=== PATIENT | male | born 1965 | race African-American/Black ===

== ENCOUNTER 2019-06-19 11:01 | Inpatient (IN) | payer OTHER ==
[2019-06-19 12:03] VITALS: BMI 34.0
--- NOTE | 2019-06-19 14:22 | HP ---
CIWA Score Nausea/Vomitin Muscle Tremors: 3 Anxiety: 2 Agitation: 2 Paroxysmal Sweats: 2 Orientation: 0-Oriented Tacttile Disturbances: 1-Very Mild Itch/Numbness Auditory Disturbances: 0-None Visual Disturbances: 1-Very Mild Sensitivity Headache: 2-Mild CIWA-Ar Total Score: 15 - Admission Criteria OASAS Guidelines: Admission for Medically Managed Detox: Requires at least one of the followin. CIWA greater than 12 2. Seizures within the past 24 hours 3. Delirium tremens within the past 24 hours 4. Hallucinations within the past 24 hours 5. Acute intervention needed for co occurring medical disorder 6. Acute intervention needed for co occurring psychiatric disorder 7. Severe withdrawal that cannot be handled at a lower level of care (continued vomiting, continued diarrhea, abnormal vital signs) requiring intravenous medication and/or fluids 8. Patient presents the following: CIWA greater than 12 Admission Criteria Met: Admission criteria met Admission ROS [facility] Chief Complaint: I need detox Allergies/Adverse Reactions: Allergies Allergy/AdvReac Type Severity Reaction Status Date / Time tomato Allergy Severe Swelling Verified 06/19/19 11:56 History of Present Illness: 54 year old man with alcohol and occasional heroin use presents for detox, this his first time at [facility]. He reports several treatments at other locations.He denies seizures related to alcohol but has had some blackouts in the past. Exam Limitations: No Limitations - Ebola screening Have you traveled outside of the country in the last 21 days: No Have you had contact with anyone from an Ebola affected area: No Have you been sick,other than usual withdrawal symptoms: No Do you have a fever: No - Review of Systems Constitutional: Chills, Loss of Appetite, Changes in sleep EENT: reports: Blurred Vision (r/t glaucoma) Respiratory: reports: Productive cough Cardiac: reports: No Symptoms Reported GI: reports: Nausea, Poor Appetite, Vomiting, Abdominal cramping : reports: No Symptoms Reported Musculoskeletal: reports: Back Pain, Joint Pain, Muscle Pain Integumentary: reports: Sweating Neuro: reports: Headache, Numbness Endocrine: reports: No Symptoms Reported Hematology: reports: No Symptoms Reported Psychiatric: reports: Anxious, Depressed Other Systems: Reviewed and Negative Patient History - Patient Medical History Hx Anemia: No Hx Asthma: Yes Hx Chronic Obstructive Pulmonary Disease (COPD): Yes Hx Cancer: No Hx Cardiac Disorders: No Hx Congestive Heart Failure: No Hx Hypertension: No Hx Hypercholesterolemia: No Hx Pacemaker: No HX Cerebrovascular Accident: No Hx Seizures: No Hx Dementia: No Hx Diabetes: No Hx Gastrointestinal Disorders: No Hx Liver Disease: No Hx Genitourinary Disorders: No Hx Sexually Transmitted Disorders: No Hx Renal Disease (ESRD): No Hx Thyroid Disease: No Hx Human Immunodeficiency Virus (HIV): No Hx Hepatitis C: No Hx Depression: Yes Hx Suicide Attempt: No Hx Bipolar Disorder: No Hx Schizophrenia: No - Patient Surgical History Past Surgical History: No - PPD History Previous Implant?: No Documented Results: Positive w/o proof Implanted On Prior [facility] Admission?: No Results: positive PPD PPD to be Administered?: No - Smoking Cessation Smoking history: Current every day smoker Have you smoked in the past 12 months: Yes Aproximately how many cigarettes per day: 10 Hx Chewing Tobacco Use: No Initiated information on smoking cessation: Yes 'Breaking Loose' booklet given: 06/19/19 - Substances abused Alcohol Substance route: Oral Frequency: Daily Amount used: 2-3 qts of beer/day Age of first use: 15 Date of last use: 06/17/19 Heroin Substance route: Inhalation Frequency: 3-6 times per week Amount used: 2-3 bags Age of first use: 53 Date of last use: 06/16/19 Admission Physical Exam [facility] - Vital Signs Vital Signs: Vital Signs - 24 hr 06/19/19 12:00 Temperature 97.6 F Pulse Rate 73 Respiratory 18 Rate Blood Pressure 120/77 - Physical General Appearance: Yes: Other (constantly sleeping) HEENTM: Yes: Hearing grossly Normal, Normal Voice, Pharynx Normal Respiratory: Yes: Chest Non-Tender, Lungs Clear, No Respiratory Distress, No Accessory Muscle Use Neck: Yes: No masses,lesions,Nodules, Supple Breast: Yes: Breast Exam Deferred Cardiology: Yes: Regular Rhythm, Regular Rate Abdominal: Yes: Normal Bowel Sounds, Soft Genitourinary: Yes: Within Normal Limits Musculoskeletal: Yes: full range of Motion Extremities: Yes: Tremors, Coldness Neurological: Yes: Alert, Normal Mood/Affect, Normal Response Integumentary: Yes: [place] Lymphatic: Yes: Within Normal Limits - Diagnostic (1) Alcohol dependence, uncomplicated Current Visit: Yes Status: Acute (2) Cocaine abuse Current Visit: Yes Status: Acute (3) Nicotine dependence Current Visit: Yes Status: Acute Qualifiers: Nicotine product type: cigarettes Substance use status: uncomplicated Qualified Code(s): F17.210 - Nicotine dependence, cigarettes, uncomplicated (4) Marijuana abuse Current Visit: Yes Status: Acute Cleared for Admission S - Detox or Rehab [facility] Level of Care: Medically Managed Detox Regimen/Protocol: Librium Claeared for Rehab Admission: No Breathalyzer - Breathalyzer Breathalyzer: 0 Urine Drug Screen - Test Device Lot number: [id number] Expiration date: 04/09/21 - Control Is test valid?: Yes - Results Drug screen NEGATIVE: No Urine drug screen results: THC-Marijuana, JUSTIN-Cocaine Inpatient Rehab Admission - Rehab Decision to Admit Inpatient rehab admission?: No
[2019-06-19] MEDS ORDERED: METHOCARBAMOL 500 MG TABLET PO PRN (14:29)
[2019-06-19] MEDS ORDERED: BISMUTH SUBSALICYLATE 524 MG/30 ML UD PO PRN (14:29)
[2019-06-19] MEDS ORDERED: MELATONIN 5 MG TABLETS PO PRN (14:29)
[2019-06-19] MEDS ORDERED: MAGNESIUM CITRATE 300 ML BOTTLE PO PRN (14:29)
[2019-06-19] MEDS ORDERED: chlordiazePOXIDE HCL 10 MG CAPSULE PO PRN (14:29)
[2019-06-19] MEDS ORDERED: ACETAMINOPHEN 325 MG TABLET (FP) PO PRN ×2 (14:29)
[2019-06-19] MEDS ORDERED: MENTHOL/PHENOL 1 EACH UD MM PRN (14:29)
[2019-06-19] MEDS ORDERED: NICOTINE POLACRILEX 2 MG GUM BUC PRN (14:29)
[2019-06-19] MEDS ORDERED: MAG HYDROX/AL HYDROX/SIMETH 30 ML UNIT-DOSE CUP PO PRN (14:29)
[2019-06-19] MEDS ORDERED: MAGNESIUM HYDROX 2400MG/30ML ORAL SUSPENSION 30 ML CUP PO PRN (14:29)
[2019-06-19] MEDS ORDERED: hydrOXYzine PAMOATE 25 MG CAPSULE (FP) PO PRN (14:29)
[2019-06-19] MEDS: NICOTINE 14 MG/24 HOURS TOPICAL PATCH TD SCH (15:28)
[2019-06-19] MEDS: chlordiazePOXIDE HCL 25 MG CAPSULE PO SCH (23:40)
[2019-06-19] MEDS: THIAMINE HCL 100 MG TABLET (FP) PO SCH (23:40)
[2019-06-20] MEDS: chlordiazePOXIDE HCL 25 MG CAPSULE PO SCH ×3 (07:00→22:50)
--- NOTE | 2019-06-20 10:02 | PN ---
S CIWA - CIWA Score Nausea/Vomitin-Mild Nausea/No Vomiting Muscle Tremors: 2 Anxiety: 2 Agitation: 2 Paroxysmal Sweats: No Perspiration Orientation: 0-Oriented Tacttile Disturbances: 1-Very Mild Itch/Numbness Auditory Disturbances: 0-None Visual Disturbances: 0-None Headache: 2-Mild CIWA-Ar Total Score: 10 [facility] Progress Note (SOAP) Subjective: alert,irritable,anxious,interrupted sleep,tremor,coughing with yellowish mucous Objective: 06/20/19 10:00 Vital Signs Temperature 97.9 F 06/20/19 09:25 Pulse Rate 69 06/20/19 09:25 Respiratory Rate 18 06/20/19 09:25 Blood Pressure 141/86 06/20/19 09:25 O2 Sat by Pulse Oximetry (%) labs pending Assessment: 06/20/19 10:01 withdrawal symptom Plan: continue detox librium regimen,zithromax for bronchitis,chest xray to day
[2019-06-20 10:08] LABS: ALBUMIN 2.9 g/dl (3.4-5.0); BILIRUBIN,TOTAL 0.3 mg/dL (0.2-1); BLOOD UREA NITROGEN 9.5 mg/dL (7-18); CALCIUM 8.6 mg/dL (8.5-10.1); TOT PROT 5.8 g/dl (6.4-8.2)
[2019-06-20 10:20] LABS: HEMATOCRIT 42.4 % (35.4-49); HEMOGLOBIN 13.8 GM/dL (11.7-16.9); MCHC 32.5 g/dl (32.0-35.9); MEAN CELL VOLUME 89.1 fl (80-96); MEAN PLT VOLUME 10.3 fl (7.5-11.1); PLATELET COUNT 174 K/MM3 (134-434); RBC 4.76 M/mm3 (4.00-5.60); WHITE BLOOD COUNT 8.2 K/mm3 (4.0-10.0)
[2019-06-20] MEDS ORDERED: AZITHROMYCIN 250 MG TABLET PO ONE (11:10)
[2019-06-20] MEDS: NICOTINE 14 MG/24 HOURS TOPICAL PATCH TD SCH (11:16)
[2019-06-20] MEDS: PRENATAL VITAMINS W/ FOLIC ACID TABLET (FP) PO SCH (11:16)
[2019-06-20] MEDS: IBUPROFEN 400 MG TABLET (FP) PO PRN (14:52)
[2019-06-20] MEDS: guaiFENesin 200 MG/10 ML 10 ML UNIT-DOSE CUPS PO PRN (21:08)
[2019-06-20] MEDS: THIAMINE HCL 100 MG TABLET (FP) PO SCH (23:21)
[2019-06-21] MEDS: chlordiazePOXIDE 5 MG CAPSULE PO SCH ×3 (05:53→22:55)
--- NOTE | 2019-06-21 09:53 | PN ---
S CIWA - CIWA Score Nausea/Vomitin-Mild Nausea/No Vomiting Muscle Tremors: 2 Anxiety: 2 Agitation: 2 Paroxysmal Sweats: No Perspiration Orientation: 0-Oriented Tacttile Disturbances: 1-Very Mild Itch/Numbness Auditory Disturbances: 0-None Visual Disturbances: 0-None Headache: 1-Very Mild CIWA-Ar Total Score: 9 BHS Progress Note (SOAP) Subjective: alert,irritable,anxious,interrupted sleep,tremor,low back pain,history of neuropathy stated on neurontin before Objective: 06/21/19 09:51 Vital Signs Temperature 98.4 F 06/21/19 09:27 Pulse Rate 70 06/21/19 09:27 Respiratory Rate 19 06/21/19 09:27 Blood Pressure 129/64 06/21/19 09:27 O2 Sat by Pulse Oximetry (%) Laboratory Last Values WBC 8.2 K/mm3 (4.0-10.0) 06/20/19 08:00 RBC 4.76 M/mm3 (4.00-5.60) 06/20/19 08:00 Hgb 13.8 GM/dL (11.7-16.9) 06/20/19 08:00 Hct 42.4 % (35.4-49) 06/20/19 08:00 MCV 89.1 fl (80-96) 06/20/19 08:00 MCH 29.0 pg (25.7-33.7) 06/20/19 08:00 MCHC 32.5 g/dl (32.0-35.9) 06/20/19 08:00 RDW 14.0 % (11.9-15.9) 06/20/19 08:00 Plt Count 174 K/MM3 (134-434) 06/20/19 08:00 MPV 10.3 fl (7.5-11.1) 06/20/19 08:00 Sodium 138 mmol/L (136-145) 06/20/19 08:00 Potassium 4.0 mmol/L (3.5-5.1) 06/20/19 08:00 Chloride 105 mmol/L (98-107) 06/20/19 08:00 Carbon Dioxide 27 mmol/L (21-32) 06/20/19 08:00 Anion Gap 6 MMOL/L (8-16) L 06/20/19 08:00 BUN 9.5 mg/dL (7-18) 06/20/19 08:00 Creatinine 1.0 mg/dL (0.55-1.3) 06/20/19 08:00 Est GFR (CKD-EPI)AfAm 99.85 06/20/19 08:00 Est GFR (CKD-EPI)NonAf 86.15 06/20/19 08:00 Random Glucose 228 mg/dL (74-106) H 06/20/19 08:00 Calcium 8.6 mg/dL (8.5-10.1) 06/20/19 08:00 Total Bilirubin 0.3 mg/dL (0.2-1) 06/20/19 08:00 AST 17 U/L (15-37) 06/20/19 08:00 ALT 34 U/L (13-61) 06/20/19 08:00 Alkaline Phosphatase 101 U/L (45-117) 06/20/19 08:00 Total Protein 5.8 g/dl (6.4-8.2) L 06/20/19 08:00 Albumin 2.9 g/dl (3.4-5.0) L 06/20/19 08:00 RPR Titer Nonreactive (NONREACTIVE) 06/20/19 08:00 Assessment: 06/21/19 09:52 withdrawal symptom 06/21/19 09:55 patient refused chest x ray yesterday Plan: continue detox librium regimen,fasting blood glucose in am,bgm bid,neurontitin 300 mgs po tid for neuropathy
[2019-06-21] MEDS: NICOTINE 14 MG/24 HOURS TOPICAL PATCH TD SCH (10:26)
[2019-06-21] MEDS: PRENATAL VITAMINS W/ FOLIC ACID TABLET (FP) PO SCH (10:27)
[2019-06-21] MEDS: AZITHROMYCIN 250 MG TABLET PO SCH (10:27)
[2019-06-21] MEDS: guaiFENesin 200 MG/10 ML 10 ML UNIT-DOSE CUPS PO PRN (10:28)
[2019-06-21] MEDS: IBUPROFEN 400 MG TABLET (FP) PO PRN ×2 (10:28→20:38)
[2019-06-21] MEDS: GABAPENTIN 300 MG CAPSULE PO SCH ×2 (13:25→22:56)
[2019-06-21] MEDS: THIAMINE HCL 100 MG TABLET (FP) PO SCH (22:56)
[2019-06-22] MEDS ORDERED: chlordiazePOXIDE HCL 10 MG CAPSULE PO PRN
[2019-06-22] MEDS: GABAPENTIN 300 MG CAPSULE PO SCH ×2 (07:13→13:57)
[2019-06-22] MEDS: chlordiazePOXIDE HCL 10 MG CAPSULE PO SCH ×2 (07:14→13:57)
--- NOTE | 2019-06-22 09:05 | PN ---
[facility] CIWA - CIWA Score Nausea/Vomitin-Mild Nausea/No Vomiting Muscle Tremors: 1-None Visible, but [place] Anxiety: 1-Mildly Anxious Agitation: 1-Slight > Activity Paroxysmal Sweats: No Perspiration Orientation: 0-Oriented Tacttile Disturbances: 0-None Auditory Disturbances: 0-None Visual Disturbances: 0-None Headache: 1-Very Mild CIWA-Ar Total Score: 5 S Progress Note (SOAP) Subjective: alert,irritable,anxious,interrupted sleep,pain in the lower back Objective: 06/22/19 09:02 Vital Signs Temperature 98.2 F 06/21/19 20:35 Pulse Rate 73 06/21/19 20:35 Respiratory Rate 18 06/21/19 20:35 Blood Pressure 122/73 06/21/19 20:35 O2 Sat by Pulse Oximetry (%) 06/22/19 09:03 fasting glucose pending Assessment: 06/22/19 09:03 withdrawal symptom Plan: continue detox ,diet modification advise,rn surgical pcu consultation,discharge in am
[2019-06-22] MEDS ORDERED: metFORMIN HCL 500 MG TABLET (FP) PO ONE (09:21)
--- NOTE | 2019-06-22 09:25 | PN ---
[facility] Progress Note Note: patient stated has history of dm but non compliance with medication,use to be on metformin 100 mgs po bid and lantus insulin will place on NCS,metformin 500 mgs po now then daily,bgm bid, advise follow up with medical provider after discharge
[2019-06-22 09:55] VITALS: BP 125/77; PULSE 74; TEMP 98.6
[2019-06-22] MEDS: NICOTINE 14 MG/24 HOURS TOPICAL PATCH TD SCH (10:34)
[2019-06-22] MEDS: guaiFENesin 200 MG/10 ML 10 ML UNIT-DOSE CUPS PO PRN (10:35)
[2019-06-22] MEDS: PRENATAL VITAMINS W/ FOLIC ACID TABLET (FP) PO SCH (10:35)
[2019-06-22] MEDS: AZITHROMYCIN 250 MG TABLET PO SCH (10:35)
--- NOTE | 2019-06-22 13:56 | PN ---
[facility] Progress Note Note: alert,no complaint ambulation without difficulty oriented x 3 heart normal heart sound lug clear bilaterally no abdominal pain stable for discharge patient will go to see medical provider for evaluation and follow up with medical problem and medications and follow up with [facility] out patient program discharge time total 30 mins did not want any prescription metformin 500 mgs po daily for 15 days e prescription to [facility] pharmacy
--- NOTE | 2019-06-22 14:02 | DS ---
[facility] Detox Discharge Summary Admission Date: 06/19/19 Discharge Date: 06/22/19 - History Present History: Alcohol Dependence, Cannabis Dependence, Cocaine Dependence Additional Comments: alert,oriented x 3 ambulation on the unit heart normal heart sound,no murmur,s1s2 lung clear bilaterally no abdominal pain,no tenderness stable for discharge,did not want prescription,will go to see medical provider at [place] for evaluation,medication and life style change modification on diet, and to [facility] out patient program total discharge time 30 mins e prescription of metformin 500 mgs po daily for 15 days to [facility] pharmacy Pertinent Past History: nicotine dependence dm - Physical Exam Results Vital Signs: Vital Signs Temperature 98.6 F 06/22/19 09:12 Pulse Rate 74 06/22/19 09:12 Respiratory Rate 18 06/22/19 09:12 Blood Pressure 125/77 06/22/19 09:12 O2 Sat by Pulse Oximetry (%) Pertinent Admission Physical Exam Findings: withdrawal signs and symptom Vital Signs Temperature 98.6 F 06/22/19 09:12 Pulse Rate 74 06/22/19 09:12 Respiratory Rate 18 06/22/19 09:12 Blood Pressure 125/77 06/22/19 09:12 O2 Sat by Pulse Oximetry (%) Laboratory Last Values WBC 8.2 K/mm3 (4.0-10.0) 06/20/19 08:00 RBC 4.76 M/mm3 (4.00-5.60) 06/20/19 08:00 Hgb 13.8 GM/dL (11.7-16.9) 06/20/19 08:00 Hct 42.4 % (35.4-49) 06/20/19 08:00 MCV 89.1 fl (80-96) 06/20/19 08:00 MCH 29.0 pg (25.7-33.7) 06/20/19 08:00 MCHC 32.5 g/dl (32.0-35.9) 06/20/19 08:00 RDW 14.0 % (11.9-15.9) 06/20/19 08:00 Plt Count 174 K/MM3 (134-434) 06/20/19 08:00 MPV 10.3 fl (7.5-11.1) 06/20/19 08:00 Sodium 138 mmol/L (136-145) 06/20/19 08:00 Potassium 4.0 mmol/L (3.5-5.1) 06/20/19 08:00 Chloride 105 mmol/L (98-107) 06/20/19 08:00 Carbon Dioxide 27 mmol/L (21-32) 06/20/19 08:00 Anion Gap 6 MMOL/L (8-16) L 06/20/19 08:00 BUN 9.5 mg/dL (7-18) 06/20/19 08:00 Creatinine 1.0 mg/dL (0.55-1.3) 06/20/19 08:00 Est GFR (CKD-EPI)AfAm 99.85 06/20/19 08:00 Est GFR (CKD-EPI)NonAf 86.15 06/20/19 08:00 POC Glucometer 274 UNITS (80-120) 06/21/19 16:36 Random Glucose 228 mg/dL (74-106) H 06/20/19 08:00 Fasting Glucose 249 mg/dL (74-106) H 06/22/19 07:45 Calcium 8.6 mg/dL (8.5-10.1) 06/20/19 08:00 Total Bilirubin 0.3 mg/dL (0.2-1) 06/20/19 08:00 AST 17 U/L (15-37) 06/20/19 08:00 ALT 34 U/L (13-61) 06/20/19 08:00 Alkaline Phosphatase 101 U/L (45-117) 06/20/19 08:00 Total Protein 5.8 g/dl (6.4-8.2) L 06/20/19 08:00 Albumin 2.9 g/dl (3.4-5.0) L 06/20/19 08:00 RPR Titer Nonreactive (NONREACTIVE) 06/20/19 08:00 - Treatment Hospital Course: Detox Protocol Followed, Detoxed Safely, Responded well, Discharged Condition Good Patient has Accepted a Rehab Referral to: declined - Medication Discharge Medications: Ambulatory Orders metFORMIN HCL [Glucophage -] 500 mg PO DAILY@0700 #15 tablet 06/22/19 - Diagnosis (1) Alcohol dependence, uncomplicated Current Visit: Yes Status: Acute (2) Cocaine abuse Current Visit: Yes Status: Acute (3) Marijuana abuse Current Visit: Yes Status: Acute (4) Nicotine dependence Current Visit: Yes Status: Acute Qualifiers: Nicotine product type: cigarettes Substance use status: uncomplicated Qualified Code(s): F17.210 - Nicotine dependence, cigarettes, uncomplicated (5) T2DM (type 2 diabetes mellitus) Current Visit: Yes Status: Acute (6) Acute bronchitis Current Visit: Yes Status: Acute - AMA Did Patient Leave Against Medical Advice: No
[2019-06-23] MEDS ORDERED: chlordiazePOXIDE HCL 10 MG CAPSULE PO ONE (05:00)
[2019-06-23] MEDS ORDERED: metFORMIN HCL 500 MG TABLET (FP) PO SCH (07:00)
== END 2019-06-22 14:01 | disposition home or self-care (01) | DRG 774 ==
LOC: YASAS 11:01 → Y6N 14:40
PROVIDERS: ADMIT Allergy & Immunology; ATTEND Allergy & Immunology
PROC: HZ2ZZZZ Detoxification Services for Substance Abuse Treatment (ICD-10-PCS; principal; 2019-06-19)
DX: F10.230 Alcohol dependence with withdrawal, uncomplicated (principal); F14.10 Cocaine abuse, uncomplicated; F12.10 Cannabis abuse, uncomplicated; F17.210 Nicotine dependence, cigarettes, uncomplicated; E11.9 Type 2 diabetes mellitus without complications; J20.9 Acute bronchitis, unspecified; J44.9 Chronic obstructive pulmonary disease, unspecified; Z91.018 Allergy to other foods; Z91.14 Patient's other noncompliance with medication regimen; Z79.84 Long term (current) use of oral hypoglycemic drugs
CPT/HCPCS: 36415; 80053; 82947; 82962; 85027; 86593

== ENCOUNTER 2019-07-14 09:20 | Inpatient (IN) | payer OTHER ==
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
[2019-07-14 11:16] VITALS: BMI 33.9
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
[2019-07-14] MEDS ORDERED: ALBUTEROL SO4 HFA INHALER IH PRN (11:55)
[2019-07-14] MEDS ORDERED: ACETAMINOPHEN 325 MG TABLET (FP) PO PRN ×2 (11:58)
[2019-07-14] MEDS ORDERED: NICOTINE POLACRILEX 2 MG GUM BUC PRN (11:58)
[2019-07-14] MEDS ORDERED: MAG HYDROX/AL HYDROX/SIMETH 30 ML UNIT-DOSE CUP PO PRN (11:58)
[2019-07-14] MEDS ORDERED: MAGNESIUM HYDROX 2400MG/30ML ORAL SUSPENSION 30 ML CUP PO PRN (11:58)
[2019-07-14] MEDS ORDERED: BISMUTH SUBSALICYLATE 524 MG/30 ML UD PO PRN (11:58)
[2019-07-14] MEDS ORDERED: MAGNESIUM CITRATE 300 ML BOTTLE PO PRN (11:58)
[2019-07-14] MEDS ORDERED: MENTHOL/PHENOL 1 EACH UD MM PRN (11:58)
[2019-07-14] MEDS ORDERED: ONDANSETRON *ODT* 4 MG TABLET SL ONE (11:58)
[2019-07-14] MEDS: chlordiazePOXIDE HCL 25 MG CAPSULE PO PRN (13:50)
[2019-07-14] MEDS: metFORMIN HCL 500 MG TABLET (FP) PO SCH (13:50)
[2019-07-14] MEDS: IBUPROFEN 400 MG TABLET (FP) PO PRN (13:55)
[2019-07-14] MEDS: hydrOXYzine PAMOATE 25 MG CAPSULE (FP) PO SCH ×3 (13:55→21:40)
[2019-07-14] MEDS: NICOTINE 7 MG/24 HOURS TOPICAL PATCH TD SCH (14:50)
[2019-07-14] MEDS: TIMOLOL 0.5% OPHTHALMIC SOL 5 ML BOTTLE OU SCH ×2 (15:00→21:50)
[2019-07-14 15:52] LABS: HEMATOCRIT 42.6 % (35.4-49); HEMOGLOBIN 14.1 GM/dL (11.7-16.9); MCH 29.9 pg (25.7-33.7); MEAN CELL VOLUME 90.5 fl (80-96); MEAN PLT VOLUME 10.5 fl (7.5-11.1); PLATELET COUNT 187 K/MM3 (134-434); RBC 4.71 M/mm3 (4.00-5.60); RDW 13.7 % (11.9-15.9); WHITE BLOOD COUNT 8.7 K/mm3 (4.0-10.0)
[2019-07-14 16:05] LABS: ALBUMIN 3.5 g/dl (3.4-5.0); BILIRUBIN,TOTAL 0.3 mg/dL (0.2-1); BLOOD UREA NITROGEN 17.7 mg/dL (7-18); CALCIUM 8.8 mg/dL (8.5-10.1); POTASSIUM 4.4 mmol/L (3.5-5.1); TOT PROT 6.8 g/dl (6.4-8.2)
[2019-07-14] MEDS: chlordiazePOXIDE HCL 25 MG CAPSULE PO SCH ×2 (17:38→22:35)
[2019-07-14] MEDS: MELATONIN 5 MG TABLETS PO SCH (21:38)
[2019-07-14] MEDS: THIAMINE HCL 100 MG TABLET (FP) PO SCH (21:40)
[2019-07-14] MEDS: ATORVASTATIN CA 40 MG TABLET (FP) PO SCH (21:43)
[2019-07-14] MEDS: BUDESONIDE/FORMETEROL FUMARATE 160/4.5 mcg INHALER IH SCH (21:44)
[2019-07-14] MEDS: INSULIN (LEVEMIR) 100 UNITS/ML UNITS SQ SCH (21:49)
[2019-07-15] MEDS: IBUPROFEN 400 MG TABLET (FP) PO PRN (06:16)
[2019-07-15] MEDS: hydrOXYzine PAMOATE 25 MG CAPSULE (FP) PO SCH ×5 (06:17→22:47)
[2019-07-15] MEDS: metFORMIN HCL 500 MG TABLET (FP) PO SCH ×2 (06:17→17:42)
[2019-07-15] MEDS: METHOCARBAMOL 500 MG TABLET PO PRN ×2 (06:17→17:42)
[2019-07-15] MEDS: chlordiazePOXIDE HCL 25 MG CAPSULE PO SCH ×5 (06:26→23:45)
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
--- NOTE | 2019-07-15 10:49 | PN ---
S CIWA - CIWA Score Nausea/Vomitin-Mild Nausea/No Vomiting Muscle Tremors: 2 Anxiety: 3 Agitation: 3 Paroxysmal Sweats: No Perspiration Orientation: 0-Oriented Tacttile Disturbances: 0-None Auditory Disturbances: 0-None Visual Disturbances: 0-None Headache: 1-Very Mild CIWA-Ar Total Score: 10 S Progress Note (SOAP) Subjective: alert,irritable,anxious,disrupting the unit,contracted by Daysi Hernandez,patient agreed tocomply wirh rule anr regulation and would like to stay for treatment, address the issue with medications,pain in the body Objective: 07/15/19 10:40 Vital Signs Temperature 98.4 F 07/15/19 08:57 Pulse Rate 69 07/15/19 08:57 Respiratory Rate 18 07/15/19 08:57 Blood Pressure 113/82 07/15/19 08:57 O2 Sat by Pulse Oximetry (%) 07/15/19 10:40 Laboratory Last Values WBC 8.7 K/mm3 (4.0-10.0) 07/14/19 12:15 RBC 4.71 M/mm3 (4.00-5.60) 07/14/19 12:15 Hgb 14.1 GM/dL (11.7-16.9) 07/14/19 12:15 Hct 42.6 % (35.4-49) 07/14/19 12:15 MCV 90.5 fl (80-96) 07/14/19 12:15 MCH 29.9 pg (25.7-33.7) 07/14/19 12:15 MCHC 33.0 g/dl (32.0-35.9) 07/14/19 12:15 RDW 13.7 % (11.9-15.9) 07/14/19 12:15 Plt Count 187 K/MM3 (134-434) 07/14/19 12:15 MPV 10.5 fl (7.5-11.1) 07/14/19 12:15 Sodium 136 mmol/L (136-145) 07/14/19 12:15 Potassium 4.4 mmol/L (3.5-5.1) 07/14/19 12:15 Chloride 104 mmol/L (98-107) 07/14/19 12:15 Carbon Dioxide 28 mmol/L (21-32) 07/14/19 12:15 Anion Gap 5 MMOL/L (8-16) L 07/14/19 12:15 BUN 17.7 mg/dL (7-18) 07/14/19 12:15 Creatinine 1.0 mg/dL (0.55-1.3) 07/14/19 12:15 Est GFR (CKD-EPI)AfAm 99.85 07/14/19 12:15 Est GFR (CKD-EPI)NonAf 86.15 07/14/19 12:15 POC Glucometer 117 UNITS (80-120) 07/15/19 06:24 Random Glucose 178 mg/dL (74-106) H 07/14/19 12:15 Calcium 8.8 mg/dL (8.5-10.1) 07/14/19 12:15 Total Bilirubin 0.3 mg/dL (0.2-1) 07/14/19 12:15 AST 11 U/L (15-37) L 07/14/19 12:15 ALT 19 U/L (13-61) 07/14/19 12:15 Alkaline Phosphatase 112 U/L (45-117) 07/14/19 12:15 Total Protein 6.8 g/dl (6.4-8.2) 07/14/19 12:15 Albumin 3.5 g/dl (3.4-5.0) 07/14/19 12:15 RPR Titer Nonreactive (NONREACTIVE) 07/14/19 12:15 07/15/19 10:41 bgm 117 Assessment: 07/15/19 10:41 withdrawal symptom Plan: continue detox librium regimen,bgm monitoring,medications for glaucoma ordered,neurontin 300 mgs po tid verify with Pharmacist by TAWANDA Ventura_Nadir
--- NOTE | 2019-07-15 10:58 | EKG ---
Test Reason : Blood Pressure : / mmHG Vent. Rate : 071 BPM Atrial Rate : 071 BPM P-R Int : 138 ms QRS Dur : 108 ms QT Int : 398 ms P-R-T Axes : 066 -18 030 degrees QTc Int : 432 ms NORMAL SINUS RHYTHM INCOMPLETE RBBB NO PREVIOUS ECGS AVAILABLE Confirmed by ERICKA HO MD ([id number]) on 07/15/2019 10:58:35 AM Referred By: Confirmed By:ERICKA HO MD
[2019-07-15] MEDS: PRENATAL VITAMINS W/ FOLIC ACID TABLET (FP) PO SCH (11:22)
[2019-07-15] MEDS: NICOTINE 7 MG/24 HOURS TOPICAL PATCH TD SCH (11:22)
[2019-07-15] MEDS: BUDESONIDE/FORMETEROL FUMARATE 160/4.5 mcg INHALER IH SCH ×2 (11:22→23:35)
[2019-07-15] MEDS: LISINOPRIL 10 MG TABLET (FP) PO SCH (11:22)
[2019-07-15] MEDS: TIMOLOL 0.5% OPHTHALMIC SOL 5 ML BOTTLE OU SCH ×2 (11:23→23:46)
[2019-07-15] MEDS: GABAPENTIN 300 MG CAPSULE PO SCH ×2 (13:47→23:34)
[2019-07-15] MEDS ORDERED: SUVOREXANT 10 MG TABLET PO PRN (22:00)
[2019-07-15] MEDS: MELATONIN 5 MG TABLETS PO SCH (22:45)
[2019-07-15] MEDS: ATORVASTATIN CA 40 MG TABLET (FP) PO SCH ×2 (22:45→23:34)
[2019-07-15] MEDS: THIAMINE HCL 100 MG TABLET (FP) PO SCH (22:47)
[2019-07-15] MEDS: chlordiazePOXIDE HCL 25 MG CAPSULE PO PRN (23:38)
[2019-07-15] MEDS: INSULIN (LEVEMIR) 100 UNITS/ML UNITS SQ SCH (23:45)
[2019-07-15] MEDS: BRIMONIDINE TARTRATE 0.2% OPHTHALMIC 5 ML BOTTLE OU SCH (23:46)
[2019-07-16] MEDS: chlordiazePOXIDE HCL 25 MG CAPSULE PO SCH ×2 (07:37→11:13)
[2019-07-16] MEDS: GABAPENTIN 300 MG CAPSULE PO SCH (07:37)
[2019-07-16] MEDS: metFORMIN HCL 500 MG TABLET (FP) PO SCH (07:37)
[2019-07-16] MEDS: hydrOXYzine PAMOATE 25 MG CAPSULE (FP) PO SCH ×2 (07:37→11:10)
[2019-07-16 09:48] VITALS: BP 133/67; PULSE 81; TEMP 97.9
--- NOTE | 2019-07-16 10:39 | PN ---
S CIWA - CIWA Score Nausea/Vomitin-Mild Nausea/No Vomiting Muscle Tremors: 2 Anxiety: 2 Agitation: 3 Paroxysmal Sweats: No Perspiration Orientation: 0-Oriented Tacttile Disturbances: 0-None Auditory Disturbances: 0-None Visual Disturbances: 0-None Headache: 2-Mild CIWA-Ar Total Score: 10 S Progress Note (SOAP) Subjective: alert,irritable,anxious,interrupted sleep,pain in the body Objective: 07/16/19 10:36 Vital Signs Temperature 97.9 F 07/16/19 09:08 Pulse Rate 81 07/16/19 09:08 Respiratory Rate 19 07/16/19 09:08 Blood Pressure 133/67 07/16/19 09:08 O2 Sat by Pulse Oximetry (%) 07/16/19 10:36 Laboratory Last Values WBC 8.7 K/mm3 (4.0-10.0) 07/14/19 12:15 RBC 4.71 M/mm3 (4.00-5.60) 07/14/19 12:15 Hgb 14.1 GM/dL (11.7-16.9) 07/14/19 12:15 Hct 42.6 % (35.4-49) 07/14/19 12:15 MCV 90.5 fl (80-96) 07/14/19 12:15 MCH 29.9 pg (25.7-33.7) 07/14/19 12:15 MCHC 33.0 g/dl (32.0-35.9) 07/14/19 12:15 RDW 13.7 % (11.9-15.9) 07/14/19 12:15 Plt Count 187 K/MM3 (134-434) 07/14/19 12:15 MPV 10.5 fl (7.5-11.1) 07/14/19 12:15 Sodium 136 mmol/L (136-145) 07/14/19 12:15 Potassium 4.4 mmol/L (3.5-5.1) 07/14/19 12:15 Chloride 104 mmol/L (98-107) 07/14/19 12:15 Carbon Dioxide 28 mmol/L (21-32) 07/14/19 12:15 Anion Gap 5 MMOL/L (8-16) L 07/14/19 12:15 BUN 17.7 mg/dL (7-18) 07/14/19 12:15 Creatinine 1.0 mg/dL (0.55-1.3) 07/14/19 12:15 Est GFR (CKD-EPI)AfAm 99.85 07/14/19 12:15 Est GFR (CKD-EPI)NonAf 86.15 07/14/19 12:15 POC Glucometer 213 UNITS (80-120) 07/15/19 23:27 Random Glucose 178 mg/dL (74-106) H 07/14/19 12:15 Calcium 8.8 mg/dL (8.5-10.1) 07/14/19 12:15 Total Bilirubin 0.3 mg/dL (0.2-1) 07/14/19 12:15 AST 11 U/L (15-37) L 07/14/19 12:15 ALT 19 U/L (13-61) 07/14/19 12:15 Alkaline Phosphatase 112 U/L (45-117) 07/14/19 12:15 Total Protein 6.8 g/dl (6.4-8.2) 07/14/19 12:15 Albumin 3.5 g/dl (3.4-5.0) 07/14/19 12:15 RPR Titer Nonreactive (NONREACTIVE) 07/14/19 12:15 Assessment: 07/16/19 10:37 withdrawal symptom Plan: continue detox librium regimen,bgm monitoring,continue metformin 1000 mgs po bidac and lantus insulin 35 unit hs,bgm monitoring ashs
[2019-07-16] MEDS: LISINOPRIL 10 MG TABLET (FP) PO SCH (11:10)
[2019-07-16] MEDS: PRENATAL VITAMINS W/ FOLIC ACID TABLET (FP) PO SCH (11:10)
[2019-07-16] MEDS: BUDESONIDE/FORMETEROL FUMARATE 160/4.5 mcg INHALER IH SCH (11:11)
[2019-07-16] MEDS: TIMOLOL 0.5% OPHTHALMIC SOL 5 ML BOTTLE OU SCH (11:12)
[2019-07-16] MEDS: NICOTINE 7 MG/24 HOURS TOPICAL PATCH TD SCH (11:13)
[2019-07-16] MEDS: BRIMONIDINE TARTRATE 0.2% OPHTHALMIC 5 ML BOTTLE OU SCH (11:15)
--- NOTE | 2019-07-16 11:31 | PN ---
[facility] Progress Note Note: patient did not want to complete treatment,,all attempts to convince patient to stay with no avail,the high risk of relapsing explained,patient understood, signed release ama,advise to call 911 if not feeling well
--- NOTE | 2019-07-16 11:40 | DS ---
[facility] Detox Discharge Summary Admission Date: 07/14/19 Discharge Date: 07/16/19 - History Present History: Alcohol Dependence, Cannabis Dependence Additional Comments: alert,oriented x 3 ambulation in unit without difficulty no abdominal pain no swelling of legs signed release ama,high risks of relapsing explained,patient understood,advise to call 011 if not feeling eell, patient stated will go and see his medical provider at [facility] for follow up and medical management,has all medications left the unit in stable condition time spending on discharge 35 mons Pertinent Past History: type 2 dm hypertension hypercholesterolemia glaucoma neuropathy - Physical Exam Results Vital Signs: Vital Signs Temperature 97.9 F 07/16/19 09:08 Pulse Rate 81 07/16/19 09:08 Respiratory Rate 19 07/16/19 09:08 Blood Pressure 133/67 07/16/19 09:08 O2 Sat by Pulse Oximetry (%) Pertinent Admission Physical Exam Findings: withdrawal signs and symptom Vital Signs Temperature 97.9 F 07/16/19 09:08 Pulse Rate 81 07/16/19 09:08 Respiratory Rate 19 07/16/19 09:08 Blood Pressure 133/67 07/16/19 09:08 O2 Sat by Pulse Oximetry (%) Laboratory Last Values WBC 8.7 K/mm3 (4.0-10.0) 07/14/19 12:15 RBC 4.71 M/mm3 (4.00-5.60) 07/14/19 12:15 Hgb 14.1 GM/dL (11.7-16.9) 07/14/19 12:15 Hct 42.6 % (35.4-49) 07/14/19 12:15 MCV 90.5 fl (80-96) 07/14/19 12:15 MCH 29.9 pg (25.7-33.7) 07/14/19 12:15 MCHC 33.0 g/dl (32.0-35.9) 07/14/19 12:15 RDW 13.7 % (11.9-15.9) 07/14/19 12:15 Plt Count 187 K/MM3 (134-434) 07/14/19 12:15 MPV 10.5 fl (7.5-11.1) 07/14/19 12:15 Sodium 136 mmol/L (136-145) 07/14/19 12:15 Potassium 4.4 mmol/L (3.5-5.1) 07/14/19 12:15 Chloride 104 mmol/L (98-107) 07/14/19 12:15 Carbon Dioxide 28 mmol/L (21-32) 07/14/19 12:15 Anion Gap 5 MMOL/L (8-16) L 07/14/19 12:15 BUN 17.7 mg/dL (7-18) 07/14/19 12:15 Creatinine 1.0 mg/dL (0.55-1.3) 07/14/19 12:15 Est GFR (CKD-EPI)AfAm 99.85 07/14/19 12:15 Est GFR (CKD-EPI)NonAf 86.15 07/14/19 12:15 POC Glucometer 213 UNITS (80-120) 07/15/19 23:27 Random Glucose 178 mg/dL (74-106) H 07/14/19 12:15 Calcium 8.8 mg/dL (8.5-10.1) 07/14/19 12:15 Total Bilirubin 0.3 mg/dL (0.2-1) 07/14/19 12:15 AST 11 U/L (15-37) L 07/14/19 12:15 ALT 19 U/L (13-61) 07/14/19 12:15 Alkaline Phosphatase 112 U/L (45-117) 07/14/19 12:15 Total Protein 6.8 g/dl (6.4-8.2) 07/14/19 12:15 Albumin 3.5 g/dl (3.4-5.0) 07/14/19 12:15 RPR Titer Nonreactive (NONREACTIVE) 07/14/19 12:15 - Medication Discharge Medications: Ambulatory Orders Albuterol Sulfate Inhaler - [Ventolin Hfa Inhaler -] 1 - 2 inh PO QID PRN 07/14/19 Atorvastatin Ca [Lipitor] 40 mg PO HS 07/14/19 Brimonidine Tartrate/Timolol [Combigan Eye Drops] 5 ml OP HS 07/14/19 Budesonide/Formeterol Fumarate [SYMBICORT 160/4.5mcg -] 1 inh PO BID 07/14/19 Gabapentin 800 mg PO TID 07/14/19 Insulin Glargine,Hum.rec.anlog [Lantus] 35 unit SQ HS 07/14/19 Lisinopril 10 mg PO DAILY 07/14/19 metFORMIN HCL [Glucophage -] 500 mg PO DAILY 07/14/19 - Diagnosis (1) Alcohol dependence, uncomplicated Current Visit: Yes Status: Acute (2) Cocaine dependence Current Visit: Yes Status: Acute (3) Bronchial asthma Current Visit: Yes Status: Chronic (4) T2DM (type 2 diabetes mellitus) Current Visit: Yes Status: Chronic (5) Schizoaffective disorder Current Visit: Yes Status: Ruled-out (6) HTN (hypertension) Current Visit: No Status: Chronic (7) Hyperlipidemia Current Visit: No Status: Chronic (8) Nicotine dependence Current Visit: No Status: Chronic Qualifiers: Nicotine product type: cigarettes Substance use status: uncomplicated Qualified Code(s): F17.210 - Nicotine dependence, cigarettes, uncomplicated (9) Asthma Current Visit: Yes Status: Acute (10) Neuropathy Current Visit: Yes Status: Acute - AMA Did Patient Leave Against Medical Advice: Yes
[2019-07-17] MEDS ORDERED: chlordiazePOXIDE HCL 10 MG CAPSULE PO PRN
[2019-07-17] MEDS ORDERED: chlordiazePOXIDE HCL 10 MG CAPSULE PO SCH (05:00)
[2019-07-18] MEDS ORDERED: chlordiazePOXIDE HCL 10 MG CAPSULE PO SCH (05:00)
[2019-07-19] MEDS ORDERED: chlordiazePOXIDE HCL 10 MG CAPSULE PO ONE (05:00)
== END 2019-07-16 12:17 | disposition left against medical advice (07) | DRG 770 ==
LOC: YASAS 09:20 → Y6N 12:18
PROVIDERS: ADMIT Allergy & Immunology; ATTEND Allergy & Immunology
PROC: HZ2ZZZZ Detoxification Services for Substance Abuse Treatment (ICD-10-PCS; principal; 2019-07-14)
DX: F10.230 Alcohol dependence with withdrawal, uncomplicated (principal); F14.20 Cocaine dependence, uncomplicated; F12.20 Cannabis dependence, uncomplicated; F17.210 Nicotine dependence, cigarettes, uncomplicated; F25.9 Schizoaffective disorder, unspecified; F19.282 Other psychoactive substance dependence with psychoactive substance-induced sleep disorder; F19.24 Other psychoactive substance dependence with psychoactive substance-induced mood disorder; F41.9 Anxiety disorder, unspecified; F39 Unspecified mood [affective] disorder; G62.9 Polyneuropathy, unspecified; I10 Essential (primary) hypertension; E78.5 Hyperlipidemia, unspecified; E11.9 Type 2 diabetes mellitus without complications; Z79.4 Long term (current) use of insulin; J45.909 Unspecified asthma, uncomplicated; H40.9 Unspecified glaucoma; Z59.0 Homelessness; Z91.410 Personal history of adult physical and sexual abuse
CPT/HCPCS: 36415; 71046-TC-FY; 80053; 82962; 85027; 86593; 93005; 93010